=== PATIENT | female | born 1950 | race Caucasian/White ===

== ENCOUNTER 2017-12-27 13:17 | Emergency (ER) | payer MEDICARE, OTHER ==
[~2017-12-27] VITALS: Ht 157.5 cm; Wt 98.9 kg
[2017-12-27 13:42] VITALS: BP 147/58
[2017-12-27 13:59] LABS: Basophils # (auto) 0.1 uL; Basophils % (auto) 1.1 % (0.0-2.0); Eosinophils # (auto) 0.4 uL; Eosinophils % (auto) 4.1 % (0.0-7.0); Hemoglobin 14.1 g/dL (12.2-16.2); Lymphocytes # (auto) 3.1 uL; Lymphocytes % (auto) 31.3 % (10.0-50.0); Mean Corpuscular Hemoglobin 30.8 pg (28.0-32.0); Mean Corpuscular Hgb Conc. 33.6 g/dL (32.0-36.0); Mean Corpuscular Volume 91.8 fL (80.0-100.0); Monocytes # (auto) 0.4 uL; Monocytes % (auto) 4.3 % (0.0-12.0); Neutrophils # (auto) 5.8 uL; Neutrophils % (auto) 59.2 % (37.0-80.0); Nucleated Red Blood Cells % 0.2 %; Platelet Count (auto) 387 10^3/uL (140-450); Red Blood Cells 4.57 10^6/uL (4.0-5.20); Red Cell Distribution Width 14.4 % (11.8-14.3); White Blood Cell 9.8 10^3/uL (4.4-10.8)
[2017-12-27 14:17] LABS: Alanine Aminotransferase 27 U/L (13-56); Albumin 4.2 g/dL (3.4-5.0); Alkaline Phosphatase 97 U/L (45-117); Anion Gap 11 (5-15); Aspartate Aminotransferase 15 U/L (15-37); BUN/Creatinine Ratio 19.7; Bilirubin, Total 0.3 mg/dL (0.2-1.0); Blood Urea Nitrogen 14 mg/dL (7-18); Carbon Dioxide 24 mmol/L (21-32); Chloride 105 mmol/L (98-107); GFR African American 106 mL/min; GFR Non-African American 88 mL/min; Glucose 138 mg/dL (74-106); Magnesium 2.4 mg/dL (1.6-2.6); Potassium 3.2 mmol/L (3.5-5.1); Sodium 140 mmol/L (136-145); Total Protein 8.8 g/dL (6.4-8.2)
[2017-12-27 14:34] LABS: Urine Bacteria FEW /hpf (None Seen); Urine Blood Negative /uL (Negative); Urine Hyaline Cast FEW /lpf (0 - 2); Urine Mucus FEW (None Seen); Urine Specific Gravity 1.017 (1.001-1.035); Urine WBC 1 /hpf (0 - 5)
[2017-12-27] MEDS ORDERED: POTASSIUM CHL 20 Meq TABLET PO ONE (14:45)
[2017-12-27] MEDS ORDERED: LACTULOSE 20Gm/30ML SOLN PO PRN (15:30)
[2017-12-27] MEDS ORDERED: DEXTROSE (50%) 50ML SYRG IV PRN (15:30)
[2017-12-27] MEDS ORDERED: HYDROcodone-ACET 5/325MG TAB PO PRN (15:30)
[2017-12-27] MEDS ORDERED: ENOXAPARIN SOD 40 MG/0.4 ML SYRINGE SC SCH (15:30)
[2017-12-27] MEDS ORDERED: PROMETHAZINE HCL 25 MG/ML 1ML IV PRN (15:30)
[2017-12-27] MEDS ORDERED: ACETAMINOPHEN 500 MG TAB PO PRN (15:30)
[2017-12-27] MEDS ORDERED: LORazepam 0.5 MG TAB PO PRN (15:30)
[2017-12-27] MEDS ORDERED: TEMAZEPAM 15 MG CAP PO PRN (15:30)
[2017-12-27] MEDS ORDERED: MORPHINE SULFATE 4 MG/ML SYR/VIAL IV PRN ×2 (15:30)
[2017-12-27] MEDS ORDERED: NITROGLYCERIN 0.4 MG SL TAB SL PRN (15:30)
[2017-12-27 16:20] LABS: Alcohol, Urine < 3.0 mg/dL (0-5); Amphetamine Screen, Urine NEGATIVE (NEGATIVE); Barbiturate Scree,Urine NEGATIVE (NEGATIVE); Benzodiazephine Screen, Urine NEGATIVE (NEGATIVE); Cannabinoid Screen, Urine NEGATIVE (NEGATIVE); Cocaine Screen, Urine NEGATIVE (NEGATIVE); Opiate Scree,Urine NEGATIVE (NEGATIVE); Phencyclidine Screen, Urine NEGATIVE (NEGATIVE)
[2017-12-27] MEDS ORDERED: ACCU-CHEK COMFORT CURVE STRIP VI SCH (18:00)
[2017-12-27] MEDS ORDERED: CARVEDILOL 3.125 MG TAB PO SCH (22:00)
[2017-12-27] MEDS ORDERED: ATORVASTATIN 20 MG TAB PO SCH (22:00)
[2017-12-27] MEDS ORDERED: SODIUM CHLOR 0.9% PF (SALINE LOCK) 10ML VIAL IV SCH (22:00)
[2017-12-28] MEDS ORDERED: POTASSIUM CHL 20 Meq TABLET PO SCH (10:00)
[2017-12-28] MEDS ORDERED: ENALAPRIL MALEATE 2.5 MG TAB PO SCH (10:00)
[2017-12-28] MEDS ORDERED: FUROSEMIDE 40 MG/4 ML VIAL IV SCH (10:00)
[2017-12-28] MEDS ORDERED: NITROGLYCERIN 0.2MG/HR TOPICAL PATCH TD SCH (10:00)
[2017-12-28] MEDS ORDERED: ASPirin 81 mg TAB PO SCH (10:00)
[2017-12-28] MEDS ORDERED: PANTOPRAZOLE 40 MG TAB PO SCH (10:00)
== END 2017-12-27 15:50 | disposition home or self-care (01) ==
LOC: ER 13:17
DX: I48.91 Unspecified atrial fibrillation (principal); J45.909 Unspecified asthma, uncomplicated; I10 Essential (primary) hypertension; E78.5 Hyperlipidemia, unspecified; Z90.710 Acquired absence of both cervix and uterus; E66.01 Morbid (severe) obesity due to excess calories
CPT/HCPCS: 36415; 71045; 80053; 80307; 81001; 82550; 83036; 83735; 83880; 84443; 84484; 85025; 85379; 85652; 86141; 93005; 93306; 94761

== ENCOUNTER 2021-05-12 13:05 | Emergency (ER) | payer MEDICARE, OTHER ==
[~2021-05-12] VITALS: Ht 157.5 cm; Wt 94.8 kg
[2021-05-12] MEDS ORDERED: ASPirin 81 mg TAB PO ONE (13:30)
[2021-05-12 14:05] LABS: Urine Bacteria FEW /hpf (None Seen); Urine Blood Negative /uL (Negative); Urine Hyaline Cast FEW /lpf (0 - 2); Urine Mucus FEW (None Seen); Urine Specific Gravity 1.014 (1.001-1.035); Urine WBC 2 /hpf (0 - 5)
[2021-05-12 14:09] LABS: Basophils # (auto) 0.1 10 ^3/uL (0-0.2); Basophils % (auto) 0.6 % (0.0-2.0); Eosinophils # (auto) 0.6 10 ^3/uL (0-0.8); Eosinophils % (auto) 5.6 % (0.0-7.0); Hematocrit 26.3 % (36.0-46.0); Hemoglobin 8.9 g/dL (12.2-16.2); Lymphocytes # (auto) 1.8 10 ^3/uL (0.4-5.4); Lymphocytes % (auto) 16.1 % (10.0-50.0); Mean Corpuscular Hemoglobin 31.4 pg (28.0-32.0); Mean Corpuscular Volume 92.3 fL (80.0-100.0); Monocytes # (auto) 0.8 10 ^3/uL (0-1.3); Monocytes % (auto) 7.5 % (0.0-12.0); Neutrophils # (auto) 7.7 10 ^3/uL (1.6-8.6); Neutrophils % (auto) 70.2 % (37.0-80.0); Platelet Count (auto) 330 10^3/uL (140-450); Red Blood Cells 2.84 10^6/uL (4.0-5.20); Red Cell Distribution Width 14.6 % (11.8-14.3); White Blood Cell 10.9 10^3/uL (4.4-10.8)
[2021-05-12 14:24] LABS: INR 2.03 (0.9-1.15); Partial Thromboplastin Time 31.8 sec (23.0-31.2)
[2021-05-12 14:43] LABS: BUN/Creatinine Ratio 23.4; Calcium 8.3 mg/dL (8.5-10.1); Potassium 4.5 mmol/L (3.5-5.1)
[2021-05-12 14:48] LABS: Bilirubin, Total 0.3 mg/dL (0.2-1.0)
[2021-05-12] MEDS ORDERED: FUROSEMIDE 20 MG/2 ML VIAL IV ONE (15:45)
[2021-05-12 16:19] VITALS: BP 124/70
== END 2021-05-12 17:00 | disposition home or self-care (01) ==
LOC: ER 13:05
DX: R00.2 Palpitations (principal); I48.91 Unspecified atrial fibrillation; I11.0 Hypertensive heart disease with heart failure; I50.9 Heart failure, unspecified; J45.909 Unspecified asthma, uncomplicated; E78.5 Hyperlipidemia, unspecified; Z90.710 Acquired absence of both cervix and uterus; Z88.0 Allergy status to penicillin; Z88.2 Allergy status to sulfonamides
CPT/HCPCS: 36415; 71045; 80053; 81001; 83735; 83880; 84443; 84484; 85025; 85049; 85610; 85730; 93005; 93306; 96374; 99285; J1940

== ENCOUNTER 2022-02-21 09:44 | Inpatient (IN) | payer MEDICARE, OTHER ==
[~2022-02-21] VITALS: Ht 157.5 cm; Wt 92.4 kg
[~2022-02-21 09:44] MED LIST: ACET-1156 PO; ASPI-543 PO; CHOL50007 PO; FERR27TA2 PO; FURO20TA3 PO; MUPI2CRE17 EX; NIFE1TAB30 PO; POTA-180 PO; WARF5TAB71 PO
[2022-02-21] MEDS ORDERED: SODIUM CHLORIDE 0.9% 1,000 ML IV ONE (10:00)
[2022-02-21 10:18] LABS: Urine Bacteria NONE SEEN /hpf (None Seen); Urine Blood Negative /uL (Negative); Urine Specific Gravity 1.008 (1.001-1.035); Urine WBC 1 /hpf (0 - 5)
[2022-02-21] MEDS: cloNIDine HCL 0.1 MG TAB PO ONE ×2 (10:33→10:37)
[2022-02-21 10:38] LABS: Basophils # (auto) 0.1 10 ^3/uL (0-0.2); Basophils % (auto) 1.1 % (0.0-2.0); Eosinophils # (auto) 0.3 10 ^3/uL (0-0.8); Hematocrit 35.4 % (36.0-46.0); Monocytes # (auto) 0.4 10 ^3/uL (0-1.3); Neutrophils # (auto) 5.3 10 ^3/uL (1.6-8.6); Red Cell Distribution Width 14.8 % (11.8-14.3)
[2022-02-21 10:41] LABS: Eosinophils % (auto) 3.7 % (0.0-7.0); Hemoglobin 11.6 g/dL (12.2-16.2); Lymphocytes # (auto) 1.4 10 ^3/uL (0.4-5.4); Lymphocytes % (auto) 18.8 % (10.0-50.0); Mean Corpuscular Hemoglobin 28.7 pg (28.0-32.0); Mean Corpuscular Hgb Conc. 32.8 g/dL (32.0-36.0); Mean Corpuscular Volume 87.6 fL (80.0-100.0); Monocytes % (auto) 5.7 % (0.0-12.0); Neutrophils % (auto) 70.7 % (37.0-80.0); Nucleated Red Blood Cells % 0.1 %; Red Blood Cells 4.05 10^6/uL (4.0-5.20); White Blood Cell 7.5 10^3/uL (4.4-10.8)
[2022-02-21] MEDS ORDERED: cloNIDine HCL 0.1 MG TAB PO ONE ×2 (10:45→17:15)
[2022-02-21 10:55] LABS: INR 2.05 (0.9-1.15); Partial Thromboplastin Time 36.7 sec (23.6-33.0)
[2022-02-21 11:37] LABS: Albumin 3.9 g/dL (3.4-5.0)
[2022-02-21 11:43] LABS: BUN/Creatinine Ratio 32.5; Bilirubin, Total 0.3 mg/dL (0.2-1.0); Calcium 9.2 mg/dL (8.5-10.1); Total Protein 7.8 g/dL (6.4-8.2)
[2022-02-21] MEDS ORDERED: ACETAMINOPHEN 325 MG TAB PO PRN (13:00)
[2022-02-21] MEDS ORDERED: NITROGLYCERIN 0.4 MG SL TAB SL PRN (13:00)
[2022-02-21] MEDS ORDERED: MORPHINE SULFATE INJECTION 2 MG/ML SYRG IV PRN (13:00)
[2022-02-21] MEDS ORDERED: HYDROcodone-ACET 5/325MG TAB PO PRN (13:00)
[2022-02-21] MEDS ORDERED: ONDANSETRON HCL 4 MG/2 ML VIAL IV PRN (13:00)
[2022-02-21] MEDS: SODIUM CHLOR 0.9% PF (SALINE LOCK) 10ML VIAL/SYR IV SCH ×2 (14:00→21:26)
[2022-02-21] MEDS ORDERED: WARF7.5T20 PO (16:20)
[2022-02-21] MEDS ORDERED: MAGN400T6 PO (16:20)
[2022-02-21] MEDS ORDERED: SOTA80TA PO (16:25)
[2022-02-21] MEDS ORDERED: ATOR10TA PO (16:26)
[2022-02-21] MEDS ORDERED: FAMO20TA10 PO (16:27)
[2022-02-21] MEDS ORDERED: LOSA100T33 PO (16:29)
[2022-02-21 17:00] VITALS: BP 117/67
[2022-02-21 17:37] VITALS: BP 185/83
[2022-02-21 18:56] LABS: Folate (Folic Acid) > 24.00 ng/mL (5.38-24)
[2022-02-21] MEDS ORDERED: FURO20TA3 PO (19:06)
[2022-02-21 20:02] LABS: Urine Bacteria NONE SEEN /hpf (None Seen); Urine Blood Negative /uL (Negative); Urine Specific Gravity 1.012 (1.001-1.035); Urine WBC 1 /hpf (0 - 5)
[2022-02-21] MEDS: MAGNESIUM OXIDE 400 MG TAB PO SCH (21:23)
[2022-02-21] MEDS: FAMOTIDINE 20 MG TAB PO SCH (21:25)
[2022-02-21] MEDS ORDERED: WARFARIN SODIUM 2.5 MG TAB PO ONE (21:30)
[2022-02-21 22:00] VITALS: BP 123/64
[2022-02-21] MEDS ORDERED: SOTALOL HCL 80 MG TAB PO SCH (22:00)
[2022-02-21] MEDS ORDERED: ATORVASTATIN 20 MG TAB PO SCH (22:00)
[2022-02-22] VITALS (31 sets, daily range): BP systolic 111–196; BP diastolic 34–90
[2022-02-22 06:14] LABS: INR 1.92 (0.9-1.15)
[2022-02-22] MEDS: SODIUM CHLOR 0.9% PF (SALINE LOCK) 10ML VIAL/SYR IV SCH ×3 (06:16→22:01)
[2022-02-22 06:19] LABS: Hematocrit 32.4 % (36.0-46.0); Hemoglobin 10.6 g/dL (12.2-16.2); Mean Corpuscular Hemoglobin 29.2 pg (28.0-32.0); Mean Corpuscular Hgb Conc. 32.6 g/dL (32.0-36.0); Mean Corpuscular Volume 89.6 fL (80.0-100.0); Red Blood Cells 3.61 10^6/uL (4.0-5.20); Red Cell Distribution Width 15.1 % (11.8-14.3); White Blood Cell 5.2 10^3/uL (4.4-10.8)
[2022-02-22] MEDS: LOSARTAN POTASSIUM 50 MG TAB PO SCH (08:34)
[2022-02-22] MEDS: CHOLECALCIFEROL (VITD3) 2,000 UNIT CAP/TAB PO SCH (08:34)
[2022-02-22] MEDS: ASPirin 81 mg TAB PO SCH (08:35)
[2022-02-22] MEDS: MAGNESIUM OXIDE 400 MG TAB PO SCH ×2 (08:35→22:01)
[2022-02-22] MEDS: FAMOTIDINE 20 MG TAB PO SCH ×2 (08:36→22:01)
[2022-02-22] MEDS: POTASSIUM CHL 20 Meq TABLET PO SCH (08:36)
[2022-02-22] MEDS: FUROSEMIDE 20 MG TAB PO SCH (08:36)
[2022-02-22] MEDS ORDERED: NIFEdipine ER 30 MG TAB PO ONE (09:45)
[2022-02-22] MEDS ORDERED: CYANOCOBALAMIN (B-12) 1000 MCG/1 ML VIAL IM ONE (09:45)
[2022-02-22] MEDS ORDERED: NIFEdipine ER 30 MG TAB PO SCH (10:00)
[2022-02-22] MEDS ORDERED: CHOLECALCIFEROL (VITD3) 2,000 UNIT CAP/TAB PO SCH (10:00)
[2022-02-22] MEDS ORDERED: CHOLECALCIFEROL (VITD3) 1,000UNIT=25mCg TAB PO SCH (10:00)
[2022-02-22] MEDS ORDERED: SOTALOL HCL 80 MG TAB PO ONE (11:00)
[2022-02-22] MEDS ORDERED: LORazepam 0.5 MG TAB PO PRN (12:00)
[2022-02-22] MEDS: hydrALAZINE HCL 25 MG TAB PO SCH ×2 (12:36→22:06)
[2022-02-22] MEDS ORDERED: WARFARIN SODIUM 2.5 MG TAB PO ONE (17:00)
[2022-02-22] MEDS: SOTALOL HCL 80 MG TAB PO SCH (22:07)
[2022-02-23] VITALS (41 sets, daily range): BP systolic 110–172; BP diastolic 28–91
[2022-02-23 04:45] LABS: INR 1.95 (0.9-1.15)
[2022-02-23 04:50] LABS: BUN/Creatinine Ratio 21.6; Calcium 9.1 mg/dL (8.5-10.1); Magnesium 2.6 mg/dL (1.6-2.6); Phosphorus 3.8 mg/dL (2.5-4.90); Potassium 3.7 mmol/L (3.5-5.1)
[2022-02-23 04:56] LABS: Basophils # (auto) 0 10 ^3/uL (0-0.2); Basophils % (auto) 0.5 % (0.0-2.0); Eosinophils # (auto) 0.3 10 ^3/uL (0-0.8); Eosinophils % (auto) 4.1 % (0.0-7.0); Hematocrit 34.8 % (36.0-46.0); Hemoglobin 11.5 g/dL (12.2-16.2); Lymphocytes # (auto) 1.4 10 ^3/uL (0.4-5.4); Lymphocytes % (auto) 20.2 % (10.0-50.0); Mean Corpuscular Hemoglobin 29.5 pg (28.0-32.0); Mean Corpuscular Hgb Conc. 32.9 g/dL (32.0-36.0); Mean Corpuscular Volume 89.5 fL (80.0-100.0); Monocytes # (auto) 0.4 10 ^3/uL (0-1.3); Monocytes % (auto) 5.1 % (0.0-12.0); Neutrophils % (auto) 70.1 % (37.0-80.0); Nucleated Red Blood Cells % 0.1 %; Red Blood Cells 3.89 10^6/uL (4.0-5.20); Red Cell Distribution Width 15.1 % (11.8-14.3); White Blood Cell 7.1 10^3/uL (4.4-10.8)
[2022-02-23] MEDS: SODIUM CHLOR 0.9% PF (SALINE LOCK) 10ML VIAL/SYR IV SCH ×2 (06:11→15:12)
[2022-02-23] MEDS: SOTALOL HCL 80 MG TAB PO SCH (09:34)
[2022-02-23] MEDS ORDERED: NIFEdipine ER 30 MG TAB PO SCH (10:00)
[2022-02-23] MEDS: hydrALAZINE HCL 25 MG TAB PO SCH ×2 (10:01→17:02)
[2022-02-23] MEDS: CHOLECALCIFEROL (VITD3) 2,000 UNIT CAP/TAB PO SCH (10:01)
[2022-02-23] MEDS: FAMOTIDINE 20 MG TAB PO SCH (10:02)
[2022-02-23] MEDS: MAGNESIUM OXIDE 400 MG TAB PO SCH (10:02)
[2022-02-23] MEDS: ASPirin 81 mg TAB PO SCH (10:02)
[2022-02-23] MEDS: POTASSIUM CHL 20 Meq TABLET PO SCH (10:02)
[2022-02-23] MEDS: FUROSEMIDE 20 MG TAB PO SCH (10:03)
[2022-02-23] MEDS: LOSARTAN POTASSIUM 50 MG TAB PO SCH (12:37)
[2022-02-23] MEDS ORDERED: WARFARIN SODIUM 2.5 MG TAB PO ONE ×2 (17:00→19:00)
== END 2022-02-23 21:00 | disposition short-term general hospital (02) | DRG 92 ==
LOC: ER 09:44 → TELE 12:53 → TELE-EAST 14:50 → ICU WEST 02-22 15:22
PROVIDERS: ADMIT Internal Medicine; ATTEND Internal Medicine
DX: I67.1 Cerebral aneurysm, nonruptured (principal); I16.1 Hypertensive emergency; I48.0 Paroxysmal atrial fibrillation; I11.9 Hypertensive heart disease without heart failure; R55 Syncope and collapse; Z79.01 Long term (current) use of anticoagulants; Z82.3 Family history of stroke; Z82.49 Family history of ischemic heart disease and other diseases of the circulatory system; Z90.710 Acquired absence of both cervix and uterus; Z95.2 Presence of prosthetic heart valve; Z88.2 Allergy status to sulfonamides; Z88.0 Allergy status to penicillin
CPT/HCPCS: 36415; 70450; 70545; 70551; 71045; 80048; 80053; 81001; 82088; 82306; 82533; 82607; 82746; 83735; 83835; 83880; 84100; 84244; 84439; 84443; 84484; 85025; 85027; 85610; 85730; 87081; 93005; 93306; 93886; 93975; 96360; G0378

== ENCOUNTER 2022-10-17 13:00 | Emergency (ER) | payer MEDICARE, OTHER ==
[~2022-10-17] VITALS: Ht 157.5 cm; Wt 88.2 kg
[~2022-10-17 13:00] MED LIST changes: +ATOR10TA PO; +FAMO20TA10 PO; +LOSA100T33 PO; +MAGN400T6 PO; +SOTA80TA PO; -WARF5TAB71 PO; +WARF7.5T20 PO
[2022-10-17] MEDS ORDERED: OXYMETAZOLINE HCL 0.05 % NASAL SPRAY 15ML ONE (17:00)
[2022-10-17 18:24] LABS: Basophils # (auto) 0.1 10 ^3/uL (0-0.2); Basophils % (auto) 0.9 % (0.0-2.0); Eosinophils # (auto) 0.2 10 ^3/uL (0-0.8); Eosinophils % (auto) 3.1 % (0.0-7.0); Hematocrit 36.2 % (36.0-46.0); Hemoglobin 11.6 g/dL (12.2-16.2); Lymphocytes # (auto) 1.8 10 ^3/uL (0.4-5.4); Lymphocytes % (auto) 30.9 % (10.0-50.0); Mean Corpuscular Hemoglobin 30.2 pg (28.0-32.0); Mean Corpuscular Hgb Conc. 32.1 g/dL (32.0-36.0); Mean Corpuscular Volume 94.3 fL (80.0-100.0); Monocytes # (auto) 0.3 10 ^3/uL (0-1.3); Monocytes % (auto) 4.9 % (0.0-12.0); Neutrophils # (auto) 3.6 10 ^3/uL (1.6-8.6); Neutrophils % (auto) 60.2 % (37.0-80.0); Nucleated Red Blood Cells % 0.2 %; Red Blood Cells 3.84 10^6/uL (4.0-5.20); Red Cell Distribution Width 15.1 % (11.8-14.3)
[2022-10-17 18:42] LABS: INR 2.16 (0.9-1.15); Partial Thromboplastin Time 39.2 sec (24.6-33.4)
[2022-10-17 21:11] VITALS: BP 153/79
[2022-10-18] MEDS ORDERED: HYDR-4902 PO (17:34)
== END 2022-10-17 21:11 | disposition home or self-care (01) ==
LOC: ER 13:08
DX: R04.0 Epistaxis (principal); I10 Essential (primary) hypertension; I48.91 Unspecified atrial fibrillation; E78.5 Hyperlipidemia, unspecified; J45.909 Unspecified asthma, uncomplicated; Z90.710 Acquired absence of both cervix and uterus; Z79.82 Long term (current) use of aspirin; Z79.01 Long term (current) use of anticoagulants; Z79.899 Other long term (current) drug therapy; Z88.0 Allergy status to penicillin; Z88.2 Allergy status to sulfonamides
CPT/HCPCS: 36415; 85025; 85610; 85730

== ENCOUNTER 2022-10-18 16:58 | Emergency (ER) | payer MEDICARE, OTHER ==
[~2022-10-18] VITALS: Ht 157.5 cm; Wt 86.0 kg
[2022-10-18 17:29] VITALS: BP 153/70
[2022-10-18] MEDS ORDERED: ACETAMINOPHEN/CODEINE#3 (300/30mg) TAB PO ONE (17:30)
[2022-10-18] MEDS ORDERED: HYDR-4902 PO (17:34)
[2022-10-20] MEDS ORDERED: DOXY-286 PO (09:42)
== END 2022-10-18 17:45 | disposition home or self-care (01) ==
LOC: ER 16:58
DX: R04.0 Epistaxis (principal); J45.909 Unspecified asthma, uncomplicated; E78.5 Hyperlipidemia, unspecified; I10 Essential (primary) hypertension; Z90.710 Acquired absence of both cervix and uterus; Z48.00 Encounter for change or removal of nonsurgical wound dressing

== ENCOUNTER 2023-02-12 12:10 | Emergency (ER) | payer MEDICARE, OTHER ==
[~2023-02-12] VITALS: Ht 157.5 cm; Wt 89.0 kg
[~2023-02-12 12:10] MED LIST changes: +DOXY-286 PO; +HYDR-4902 PO
[2023-02-12 12:43] VITALS: BP 146/77
== END 2023-02-12 13:16 | disposition home or self-care (01) ==
LOC: ER 12:10
DX: R04.0 Epistaxis (principal); I48.91 Unspecified atrial fibrillation; J45.909 Unspecified asthma, uncomplicated; E78.5 Hyperlipidemia, unspecified; I10 Essential (primary) hypertension; Z90.710 Acquired absence of both cervix and uterus; Z79.2 Long term (current) use of antibiotics; Z79.82 Long term (current) use of aspirin; Z79.899 Other long term (current) drug therapy; Z88.0 Allergy status to penicillin; Z88.2 Allergy status to sulfonamides
CPT/HCPCS: 30901

== ENCOUNTER → 2023-02-13 14:15 | Emergency (ER) | payer MEDICARE, OTHER | END | disposition left against medical advice (07) | LOC: ER 14:15 | DX: Z48.01 Encounter for change or removal of surgical wound dressing (principal); Z53.21 Procedure and treatment not carried out due to patient leaving prior to being seen by health care provider ==

== ENCOUNTER 2023-11-05 11:31 | Emergency (ER) | payer MEDICARE, OTHER ==
[~2023-11-05] VITALS: Ht 157.5 cm; Wt 92.5 kg
[~2023-11-05 11:31] MED LIST changes: -ACET-1156 PO; +ACET-1881 PO; +FERR1TAB31 PO; -FERR27TA2 PO; +WARF-114 PO; -WARF7.5T20 PO
[2023-11-05] MEDS ORDERED: AZITHROMYCIN 250 MG TAB PO ONE (12:00)
[2023-11-05 12:13] VITALS: BP 138/57; PULSE 66; RESP 16; TEMP 98.7; O2SAT 95
[2023-11-05] MEDS ORDERED: AZIT-74 PO (12:13)
[2023-11-05 13:14] LABS: Rapid Influenza A Negative (Negative); Rapid Influenza B Negative (Negative); Rapid Strep A Screen-Throat Negative
[2023-11-05 13:21] LABS: COVID19 ANTIGEN SOFIA FIA POSITIVE (NEGATIVE)
== END 2023-11-05 12:16 | disposition home or self-care (01) ==
LOC: ER 11:31
DX: J06.9 Acute upper respiratory infection, unspecified (principal); I10 Essential (primary) hypertension; E78.5 Hyperlipidemia, unspecified; F41.9 Anxiety disorder, unspecified; F32.9 Major depressive disorder, single episode, unspecified; J45.909 Unspecified asthma, uncomplicated; I48.91 Unspecified atrial fibrillation; Z98.890 Other specified postprocedural states; Z20.822 Contact with and (suspected) exposure to COVID-19
CPT/HCPCS: 36415; 71046; 87070; 87426; 87804; 87880

== ENCOUNTER 2025-09-11 10:25 | Outpatient (CLI) | payer MEDICARE, OTHER ==
[~2025-09-11 10:25] MED LIST changes: +ALBUTEROL SULF 2.5 MG/0.5ML(0.5%) NEB SOLN ONE; +AZIT-74 PO
== END 2025-09-11 17:00 | disposition home or self-care (01) ==
LOC: RT 10:25
PROVIDERS: ATTEND Internal Medicine Pulmonary Disease
DX: J45.50 Severe persistent asthma, uncomplicated (principal); R93.89 Abnormal findings on diagnostic imaging of other specified body structures
CPT/HCPCS: 94060; 94729